=== PATIENT | female | born 1990 | race Caucasian/White ===

== ENCOUNTER → 2020-07-05 08:22 | Outpatient (CLI) | payer OTHER, SELFPAY ==
--- NOTE | ~2020-07-05 | US_ITS ---
EXAMINATION: US OB <= 14 weeks fetus DATE: 07/05/2020 08:45 INDICATION: Uncertain dates. TECHNIQUE: Real-time transabdominal pelvic ultrasound was performed. COMPARISON: None. FINDINGS: The uterus measures 11.2 x 6.8 x 8.7 cm. There is an intrauterine gestational sac. The crown ru mp length measures 5.8 cm, which correlates with an estimated gestational age of 12 weeks and 2 day(s ) (+/-) 1 week(s) and 1 day(s). heart motion is identified measuring 149 beats per minute (bpm) by M-mode Doppler. The right ovary measures 3.5 x 2.5 x 3.0 cm. The left ovary measures 3.4 x 2.6 x 3.4 cm. There is no free fluid in the pelvis. IMPRESSION: 1. Single living intrauterine gestation with estimated date of delivery of 01/15/2021. Reviewed, dictated and finalized at location B. IMPRESSION: 1. Single living intrauterine gestation with estimated date of delivery of 12/25.
== END ==
PROVIDERS: Visit Provider Obstetrics & Gynecology Gynecology
DX: Z36.9 Encounter for antenatal screening, unspecified (principal); Z3A.00 Weeks of gestation of pregnancy not specified
CPT/HCPCS: 76801

== ENCOUNTER → 2020-08-17 14:47 | Outpatient (CLI) | payer OTHER, SELFPAY ==
--- NOTE | ~2020-08-17 | US_ITS ---
EXAMINATION: US OB >= 14 weeks Fetus DATE: 08/17/2020 15:22 INDICATION: Second trimester anatomic survey TECHNIQUE: Real-time ultrasound of the pelvis was performed. COMPARISON: 07/05/2020 FINDINGS: There is a single living fetus in breech presentation. The placenta is posterior and 4.8 cm from the internal cervical os. heart rate is 150 beats per minute (bpm). cardiac activity and fet al movement are noted. The amniotic fluid index is subjectively normal. The following anatomy was identified as normal: 4 chamber heart 3 vessel cord cord insertion kidneys urinary bladder stomach spine diaphragm ventricles cisterna magna cerebellum The following biometric data were obtained: Biparietal diameter (BPD): 4.1 cm; head circumference (HC): 15.2 cm; abdominal circumference (AC): 13 .8 cm; femur length (FL): 2.6 cm. These measurements are concordant. Estimated weight is 250 g +/- 37 g, which correlates with the 60th percentile when 01/15/2021 is used as estimated date of delivery. As single measurements, these parameters are each equal to the following estimated gestational ages w ith ranges of +/- 2 standard deviations: BPD: 18 weeks 3 days ( 16 weeks 5 days - 20 weeks 1 days). HC: 18 weeks 2 days ( 16 weeks 5 days - 19 weeks 5 days). AC: 19 weeks 2 days ( 17 weeks 1 days - 21 weeks 2 days). FL: 18 weeks 1 days ( 16 weeks 5 days - 19 weeks 4 days). estimated gestational age based solely on measurements from this exam is 18 weeks 4 days +/- 1 weeks 2 days. IMPRESSION: 1. Single living fetus in breech presentation. 2. Estimated weight is 250 g +/- 37 g, which correlates with the 60th percentile when 01/15/2021 is used as estimated date of delivery. Reviewed, dictated and finalized at location A. IMPRESSION: 1. Single living fetus in breech presentation. 2. Estimated weight is 250 g +/- 37 g, which correlates with the 60th per centile when 01/15/2021 is used as estimated date of delivery.
== END ==
PROVIDERS: Visit Provider Obstetrics & Gynecology Gynecology
DX: Z36.9 Encounter for antenatal screening, unspecified (principal); Z3A.18 18 weeks gestation of pregnancy
CPT/HCPCS: 76805

== ENCOUNTER 2025-04-13 14:14 | Outpatient (CLI) | payer OTHER, SELFPAY ==
--- NOTE | ~2025-04-13 | XR_ITS ---
3 VIEWS LUMBAR SPINE Ordering provider: Cindy Hale DC History: . Lumbago;Cervicalgia . Comparison: None. FINDINGS: VERTEBRAL BODIES: No visible fracture or subluxation. Degenerative changes of the spine. DISK SPACES: Narrowing of the disc L5-S1. SOFT TISSUES: Normal. IMPRESSION: No acute osseous abnormality lumbar spine. L5-S1 degenerative disc disease. Reviewed, dictated and finalized at location A.
--- NOTE | ~2025-04-13 | XR_ITS ---
[id number] Ordering provider: Cindy Hale DC History: . Lumbago;Cervicalgia, chronic . Comparison: None. FINDINGS: VERTEBRAL BODIES: Normal height and alignment. No visible fracture or subluxation. The dens is intact . DISK SPACES: Well maintained. PARASPINOUS SOFT TISSUES: No prevertebral soft tissue swelling. IMPRESSION: No acute osseous abnormality cervical spine. Reviewed, dictated and finalized at location A.
--- OUTSIDE RECORDS SUMMARY | 2025-04-13 14:19 | XMS_ITS | Referral Summary ---
Author Organization [facility] HealthCare Care Team Providers Care Continuous Still Operator Name Role Phone Unknown, Notinfile Primary Care Provider Unavail able Allergies No known active allergies Medications norethindrone (MICRONOR) 0.35 mg tabletIndications: Encounter for other contraceptive management Take 1 tablet (0.35 mg total) by mouth daily 28 tablet 12 2 Active OneTouch Delica Plus Lancet 33 gauge misc USE TO TEST FOUR TIMES DAILY 3 Active Active Problems Problem Noted Date Diagnosed Date History of COVID-19 12/21/2020 Overview (01/13/2022): October, Social History Tobacco Use Types Packs/Day Years Used Date Smoking Tobacco: Never Tobacco Cessation:Counseling Given: Not Answered AUDIT-C Answer Date Recorded Q1: How often do you have a drink containing alc ohol? Monthly or less 01/13/2022 Q2: How many drinks containi ng alcohol do you have on a typical day when you are drinking? 1 or 2 01/13/2022 Q3: How often do you have si x or more drinks on one occasion? Never 01/13/2022 Personal Safety Answer Date Recorded Getting School Help Needed Not on file 12/03 Comments No Sex and Gender Information Value Date Recorded Sex Assigned at Not on file Legal Sex Female 9:53 AM SANITATION SUPERINTENDENT Gender Identity Not on file Sexual Orientation Not on file Last Filed Vital Signs Vital Sign Reading Time Taken Comments Blood Pressure 110/78 12/03/2023 3:55 PM SANITATION SUPERINTENDENT Pulse 94 12/03/2023 3:55 PM SANITATION SUPERINTENDENT Temperature 37 C (98.6 F) 12/03/2023 3:55 PM SANITATION SUPERINTENDENT Respiratory Rate 12 12/03/2023 3:55 PM SANITATION SUPERINTENDENT Oxygen Saturation 97% 12/03/2023 3:55 PM SANITATION SUPERINTENDENT Inhaled Oxygen Concentration - - Weight 69.9 kg (154 lb) 12/03/2023 3:55 PM SANITATION SUPERINTENDENT Height 157.5 cm (5' 2 ) 12/03/2023 3:55 PM SANITATION SUPERINTENDENT Body Mass Index 28.17 12/03/2023 3:55 PM SANITATION SUPERINTENDENT Plan of Treatment Not on file Insurance [place] [employer] Care Teams Continuous Still Operator Relationship Specialty Start Date End Date Unknown, Notinfile PCP - General 01/09/22
--- OUTSIDE RECORDS SUMMARY | 2025-04-13 14:19 | XMS_ITS | Clinical Summary ---
Author Organization [facility] Health[facility] Care Team Providers Care Urban Designer Name Role Phone Unknown, Notinfile Primary Care [...] History of COVID-19 12/21/2020 Overview (01/13/2022): October, Surgical History Surgery Date Site/Laterality Comments WISDOM TOOTH EXTRACTION SECTION 2020 - 11/22/2021 Social History Tobacco Use Types Packs/Day Years [...] on file Legal Sex Female 9:53 AM CATH LAB TECH Gender Identity Not on file Sexual Orientation Not on file Obstetrics History Last Filed Vital Signs Vital Sign Reading Time Taken Comments Blood Pressure 110/78 12/03/2023 3:55 PM CATH LAB TECH Pulse 94 12/03/2023 3:55 PM CATH LAB TECH Temperature 37 C (98.6 F) 12/03/2023 3:55 PM CATH LAB TECH Respiratory Rate 12 12/03/2023 3:55 PM CATH LAB TECH Oxygen Saturation 97% 12/03/2023 3:55 PM CATH LAB TECH Inhaled Oxygen Concentration - - Weight 69.9 kg (154 lb) 12/03/2023 3:55 PM CATH LAB TECH Height 157.5 cm (5' 2 ) 12/03/2023 3:55 PM CATH LAB TECH Body Mass Index 28.17 12/03/2023 3:55 PM CATH LAB TECH Plan of Treatment Health Maintenance Due Date Last Done Comments Cervical Cancer Screening 1990 Depression Screening 1990 Hepatitis C Screening 1990 DTaP/Tdap/Td Vaccine (1 - Tdap) 2001 Varicella Vaccines (1 of 2 - 13+ 2-dose series) 2003 Hepatitis B Screening 2008 Regular Well Visit/Exam 18-64 2008 Influenza Vaccine (Season Ended) 2025 08/14/20 16 HPV Vaccines Aged Out No longer eligi ble based on patient's age to complete this topic Pneumococcal vaccine <65 Aged Out No longer eligible based on patient's age to complete this topic Insurance [place] CHO[place]F [place] ID[place] Care Teams Urban Designer Relationship Specialty Start Date End Date Unknown, Notinfile PCP - General 01/09/22
--- OUTSIDE RECORDS SUMMARY | 2025-04-13 14:19 | XMS_ITS | Clinical Summary ---
Author Organization [facility] Address [address] [place] [address] Phone Care Team Providers Care Vice President Of Nursing Name Role Phone Unavailable Primary Care Provider Unavailabl e Allergies No known active allergies Medications MULTIVITAMIN ORAL Take by mouth. Active Active Problems Problem Noted Date Diagnosed Date History of COVID-19 12/21/2020 Overview (12/21/2020): October, Resolved Problems Problem Noted Date Diagnosed Date Resolved Date Breech presentation 01/02/2021 03/04/20 21 Encounter for supervision of normal first in third trimester 12/21/2020 03/04/2021 Family History Medical History Relation Name Comments No Known Problems Father No Known Problems Mother Breast Cancer Neg Hx Colon Cancer Neg Hx Ovarian Cancer Neg Hx Relation Name Status Comments Father Alive Mother Alive Social History Tobacco Use Types Packs/Day Years Used Date Smoking Tobacco: Never Smokeless Tobacco: Never Alcohol Use Standard Drinks/Week Comments Not Currently 0 (1 standard drink = 0.6 oz pur e alcohol) Comments No Sex and Gender Information Value Date Recorded Sex Assigned at Not on file Legal Sex Female 10:32 AM CONSTRUCTION EXECUTIVE Gender Identity Not on file Sexual Orientation Not on file Last Filed Vital Signs Vital Sign Reading Time Taken Comments Blood Pressure 119/66 03/04/2021 3:38 PM CDT Pulse 73 01/18/2021 12:00 PM CONSTRUCTION EXECUTIVE Temperature 36.7 C (98.1 F) 01/20/2021 7:46 AM CONSTRUCTION EXECUTIVE Respiratory Rate 18 01/20/2021 7:46 AM CONSTRUCTION EXECUTIVE Oxygen Saturation 98% 01/17/2021 5:15 PM CONSTRUCTION EXECUTIVE Inhaled Oxygen Concentration - - Weight 65.7 kg (144 lb 12.8 oz) 03/04/2021 3:38 PM CDT Height 157.5 cm (5' 2 ) 03/04/2021 3:38 PM CDT Body Mass Index 26.48 03/04/2021 3:38 PM CDT Plan of Treatment Health Maintenance Due Date Last Done Comments DTAP/TDAP/TD VACCINES (1 - Tdap) 2009 HEPATITIS B VACCINES (1 of 3 - 19+ 3-dose series) 2009 HPV/Cotest (21-29) 2011 CERVICAL CANCER SCREENING 2020 HPV/Cotest (30-65) 2020 PAP SMEAR 2020 INFLUENZA VACCINE (#1) 2024 HPV VACCINES Aged Out No longer eligi ble based on patient's age to complete this topic Insurance [employer] BLUE ACCESS/TRUE BLUE PPO RX PRIME [employer]ERAPE[employer] Commercial Advance Directives For more information, please contact: [phone] * Full Code (Latest Code Status on File) Date Activated Date Inactivated Comments 01/09/2021 2:39 PM 01/09/2021 8:37 PM
--- OUTSIDE RECORDS SUMMARY | 2025-04-13 14:19 | XMS_ITS | Encounter Summary ---
Author Organization [facility] Address [address] [place] [address] Care Team Providers Care Gallery Assistant Name Role Phone Unavailable Primary Care Provider Unavailabl e Prior Encounters Date Type Department Care Team Description 12/12/2019 Converted 13x Documents [facility] [address] [id number] <No scans attached> 12/12/2019 Converted CPS Chart Documents Water [facility] [address] [id number] <No scans attached> Plan of Treatment Not on file Procedures Procedure Name Priority Date/Time Associated Diagnosis Comments 3 PRESS SUPERVISOR CONSULT Routine 02/14/2021 2:00 AM CDT 3 PULP VITALITY TESTS Routine 02/14/2021 2:00 AM CDT ADDITIONAL X-RAY Routine 02/14/2021 2:00 AM CDT SINGLE X-RAY Routine 02/14/2021 2:00 AM CDT Visit Diagnoses Not on file
--- OUTSIDE RECORDS SUMMARY | 2025-04-13 14:19 | XMS_ITS | Clinical Summary ---
Author Organization [facility] Address [address] [place] [address] Care Team Providers Care Nematologist Name Role Phone Unavailable Primary Care Provider Unavailabl e Social History Tobacco Use Types Packs/Day Years Used Date Smoking Tobacco: Never Assessed Comments Unknown Sex and Gender Information Value Date Recorded Sex Assigned at Not on file Legal Sex Female 8:40 PM PDT Gender Identity Not on file Sexual Orientation Not on file Plan of Treatment Not on file
--- OUTSIDE RECORDS SUMMARY | 2025-04-13 14:19 | XMS_ITS | Data Portability ---
Author Organization [facility] Address [address] [place] [id number] Assessment Encounter Date Assessment Date Assessment LastModified by Organization Details LastModified Time 09/05/2024 09/05/2024 we will obtain some blood work she will see me back in a year if long as all blood work is negative with regards to her abdominal symptoms are getting better there nonspecific I have asked her to touch base with her game and fish protector if they are not gone completely in a month or so to call back [email or web address] Not available 09/10/2024 21:40:52 Plan of Treatment Reminders Order Date Submit Date Provider Last Modified By Organization Details Last Modified Time Details Appointments ANNUAL 30 2024 03:00P M Nitesh Miranda MD Not available Not available Not available Lab CMP, serum or plasma 2023 [facility], [address], [place], [address], 03/08/2025 12:43:15 CBC w/ auto diff 2023 [facility], [address], [place], [address], 03/08/2025 12:43:15 urinalysi s, microscop ic 2023 [facility], [address], [place], [address], 03/08/2025 12:43:15 lipid panel, serum 2023 [employer] [facility], [address], [place], [address], 03/08/2025 12:43:15 HbA1c (hemoglob in A1c), blood 2023 [email or web address], [address], [address], [place], [address], 03/08/2025 12:43:15 TSH + free T4, serum 2023 [email or web address] [facility], [address], [address], [place], [address], 03/08/2025 12:43:15 T3, free, serum or plasma 2023 [email or web address] [facility], [address], [address], [place], [address], 03/08/2025 12:43:15 Referral None recorded. Procedures None recorded. Surgeries None recorded. Imaging None recorded. Medication Orders None recorded. Patient TargetsNo targets recorded. Patient InstructionsNo instructions recorded. Reason for Referral None Reported. Results Created Date Observation Date Name Description Value Unit Range Abnormal Flag Note LastModifiedBy Organization Detail LastModifiedTime 11/29/19 25 11/29/2024 pap, IG + HR HPV Pap,thinprep ,HPV negati ve Not Available Not Available 10:20:09 Result Notes None recorded. Problems Name Problem SNOMED Code Status Onset Date Resolution Date Notes Provider Name and Address Organization Details Recorded Time Abdominal pain 94509145 Active Diana Carroll MA null, [place] - [facility] 15:48:05 Problem Notes None recorded. Medical Equipment None Reported. Medications Name Sig Start Date Stop Date Status Note LastModified by Organization Details LastModified Time OneTouch Delica Plus Lancet 33 gauge USE TO TEST FOUR TIMES DAILY active Not Available Not Available No t Available Vitals Date Recorded Body height Body mass index (BMI) Body weight Oxygen saturation Oxygen saturation in Arterial blood by Pulse oximetry Heart rate Systolic blood pressure Diastolic blood pressure Provider Name and Address Organization Details Last Updated DateTime 157.48 cm 25.1 kg/m2 31768.2 3 g 98 % 98 % 87 /min 128 mm[Hg] 68 mm[Hg] Madeleine Garcia MA [place] - [facility] 15:08:00 Social History Question Answer Notes LastModified by Organizat ion Details LastModified Time Do You Have An Advance Directive? No Information n ot available 09/05/2024 Are You Blind Or Do You Have Difficulty Seeing? No Information n ot available 09/05/2024 What Is Your Level Of Caffeine Consumption? Moderate Information not available 09/05/2024 In The 14 Days Before Symptom Onset, Have You Had Close Contact With A Laboratory-confirm ed COVID-19 While That Case Was Ill? No Information n ot available 09/05/2024 In The 14 Days Before Symptom Onset, Have You Had Close Contact With A Person Who Is Under Investigation For COVID-19 While That Person Was Ill? No Information not available 09/05/2024 Have You Been To An Area Known To Be High Risk For COVID-19? No Information not available 09/05/2024 Are You Deaf Or Do You Have Serious Difficulty Hearing? No Information not available 09/05/2024 What Type Of Diet Are You Following? REGULAR Information n ot available 09/05/2024 What Is The Highest Grade Or Level Of School You Have Completed Or The Highest Degree You Have Received? [id number] Information not available 09/05/2024 Are There Any Guns Present In Your Home? No Information not available 09/05/2024 What Was The Date Of Your Most Recent Tobacco Screening? 09/05/2024 Information not available 09/05/2024 What Is Your Relationship Status? Information not available 09/05/2024 Do You Use Your Seat Belt Or Car Seat Routinely? Yes Information not available 09/05/2024 Do You Have Smoke And Carbon Monoxide Detectors In Your Home? Yes Information not available 09/05/2024 Do You Use Sunscreen Routinely? No Information not available 09/05/2024 Sex: Female Functional Status Question Answer Note LastModified by Organizat ion Details LastModified Time What is your level of alcohol consumption? Occasional Information not available 09/05/2024 Are you currently employed? No Information not available 09/05/2024 Are you able to care for yourself? Yes Information not available 09/05/2024 What is your exercise level? Moderate Information not available 09/05/2024 Mental Status None recorded. Family History Nothing Reported. Medical History No medical history recorded. Gynecological History Statement/Question Response Date of LMP 08/20/2024 Obstetrics History GPAL:G 2 P 2 0 0 2 Type Value Full Term 2 Living 2 Total 2 Immunizations Vaccine Type Date Status Note Provider Nam e and Address Organization Details Recorded Time Influenza, split virus, trivalent, PF 08/14/2016 completed Diana Carroll MA [facility], [place] - [facility] 09/05/2024 15:28:05 Past Encounters Encounter ID Performer Location Encounter Start Date Encounter Closed Date Diagnosis/Indication Diagnosis SNOMED-CT Code Diagnosis ICD10 Code Diagnosis Note [id number] Nitesh Miranda MD [facility] [address] [place] [address] 09/05/2024 14:50:25 09/05/2024 15:52:23 Screening for cardiovascular system disease 763634635 Z13.6 Fatigue 59705482 R53.83 Abdominal pain 59862652 R10.9 Health Concerns Section Related Observation LastModified by Organization Detai ls LastModified Time None Recorded Concern Status LastModified by Organization Details LastModified Time None Recorded Advance Directives Directive N: Payers Encounter Date Sequence Insurance Name Policy Number Policy March Covered Member ID March Member ID Guarantor Name 09/05/2024 1 [employer] BETTER HEALTH OF [place] ON OR AFTER 10/23/2020 (MEDICAID REPLACEMENT - HMO) Josseline Ko [id number] Josseline Ko Notes Date Note Type Note Provider Name and Address Organization Details Recorded Time 09/05/2024 text/html 33-year-old new patient medications none allergies none surgeries family history all healthy socially does not smoke drink vape does not do drugs 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 She has had some fatigue but she has 2 children under the age of 3 Nitesh Miranda MD Attn: Accounting,[address] [facility], [place], [address], [facility] 09/10/2024 21:41:42 OBGyn Episode No OBEpisode recorded.
--- OUTSIDE RECORDS SUMMARY | 2025-04-13 14:19 | XMS_ITS | Clinical Summary ---
Author Organization [facility] Care Team Providers Care Outsole Cutter Machine Name Role Phone Unavailable Primary Care Provider Unavailabl e Social History Tobacco Use Types Packs/Day Years Used Date Smoking Tobacco: Never Assessed Comments Unknown Sex and Gender Information Value Date Recorded Sex Assigned at Not on file Legal Sex Female 11:50 AM SYSTEMS SECURITY CONSULTANT Gender Identity Not on file Sexual Orientation Not on file Plan of Treatment Health Maintenance Due Date Last Done Comments Hepatitis C Virus (HCV) Screening 1990 TdaP Immunization 1990 Hepatitis B Immunization (1 of 3 - 19+ 3-dose series) 2009 Pap Smear 2011 Cervical Cancer Screening (CCS) 2020 HPV/Cotest 2020 Influenza Immunization (#1) 2024 08/14/2016 SARS-COV-2 Immunization (2023- season) 2024 Respiratory Syncytial Virus (RSV) Immunization (Adult) (1 - 1-dose 75+ series) 2065 Meningococcal Immunization (ACWY) Aged Out No longer eligible based on patient's age to complete this topic Pneumococcal Immunization Combined Aged Out No longer eligible based on patient's age to complete this topic Rotavirus Immunization Aged Out No lo nger eligible based on patient's age to complete this topic
== END 2025-04-13 14:15 | disposition home or self-care (01) ==
PROVIDERS: PCP Internal Medicine
DX: M51.379 Other intervertebral disc degeneration, lumbosacral region without mention of lumbar back pain or lower extremity pain (principal); M54.40 Lumbago with sciatica, unspecified side; M99.01 Segmental and somatic dysfunction of cervical region
CPT/HCPCS: 72040; 72100